=== PATIENT | male | born 1995 | race African-American/Black ===

== ENCOUNTER 2020-08-18 14:10 | Emergency (ER) | payer SELFPAY ==
[2020-08-18 14:44] VITALS: BP 155/109; PULSE 107; RESP 16; TEMP 36.6; O2SAT 97; BMI 30.8
--- NOTE | 2020-08-18 14:52 | XR_ITS ---
EXAMINATION: XR RIGHT ANKLE / FOOT CLINICAL INFORMATION: Fall. COMPARISON: None TECHNIQUE: AP, oblique and lateral views of the right ankle and AP and oblique views of the right foot. The lateral view includes the entire ankle and foot. FINDINGS: No acute fracture or dislocation. Ankle mortise is congruent. Talar dome intact. Joint spaces and articular surfaces are maintained. Diffuse soft tissue swelling about the ankle. No ankle joint effusion. XR/XR foot RT 2V IMPRESSION: No acute fracture or dislocation. Diffuse soft tissue swelling about the ankle.
--- NOTE | 2020-08-18 14:52 | XR_ITS ---
EXAMINATION: XR RIGHT ANKLE / FOOT CLINICAL INFORMATION: Fall. COMPARISON: None TECHNIQUE: AP, oblique and lateral views of the right ankle and AP and oblique views of the right foot. The lateral view includes the entire ankle and foot. FINDINGS: No acute fracture or dislocation. Ankle mortise is congruent. Talar dome intact. Joint spaces and articular surfaces are maintained. Diffuse soft tissue swelling about the ankle. No ankle joint effusion. XR/XR ankle RT min 3V IMPRESSION: No acute fracture or dislocation. Diffuse soft tissue swelling about the ankle.
--- NOTE | 2020-08-18 15:04 | ED_ITS ---
HPI - Extremity Injury (Lower) General Chief Complaint: Extremity Injury, Lower Stated Complaint: rt ankle pain Time Seen by Provider: 08/18/20 14:45 Source: patient Limitations: no limitations History of Present Illness HPI Narrative: A 24-year-old male with no significant past medical history presenting to the emergency department with right ankle pain. He states yesterday he was walking down steps and went to fall but caught himself. He did not hit his head or have LOC. No preceding symptoms. This morning he woke up at his friend's health and noticed increased swelling and pain to his ankle. He is able to ambulate with a limp. Unable to bear full weight. He other injuries. No paresthesias reported. Related Data Previous Rx's Medication Instructions Recorded hydrocortisone 1 appl TOPICAL BID PRN 7 Days #30 g 08/18/20 ibuprofen 600 mg PO Q6H PRN 7 Days #28 tab 08/18/20 Allergies Allergy/AdvReac Type Severity Reaction Status Date / Time cat dander [CATS] Allergy Intermediate WATERY EYES Unverified 05/03/20 16:29 pineapple [PINEAPPLE] Allergy Intermediate HIVES Unverified 05/03/20 16:29 Review of Systems Constitutional: Constitutional: Denies fever(s) Eyes: Eyes: Reports no additional eye complaints ENT: Reports system reviewed and no additional complaints, except as documented and Denies dizziness Cardiovascular: Cardiovascular: Denies chest pain, Denies syncope and Denies dyspnea Respiratory: Respiratory: Denies dyspnea Gastrointestinal: Gastrointestinal: Denies abdominal pain and Denies vomiting Musculoskeletal: Comments: right ankle pain and swelling Neurologic: Denies dizziness and Denies syncope Psychiatric: Psychiatric: Reports no additional psychiatric complaints Hematologic/Lymphatic: Hematologic/Lymphatic: Denies easy bleeding PMFSH Past Medical History Medical History Asthma Eczema Social History Social History Advance Directives: No Advance Directives Information Provided: No Physical Exam Vital Signs: Vital Signs: Last Vital Signs Temp 97.9 F 08/18/20 14:44 Pulse 107 H 08/18/20 14:44 Resp 16 08/18/20 14:44 BP 155/109 H 08/18/20 14:44 Pulse Ox 97 08/18/20 14:44 Body Mass Index 30.8 Const: Other: talking on cell phone, anxious Orientation/consciousness: patient oriented x3 HENMT: Head: Yes normocephalic and Yes atraumatic Eyes: Pupils: Equal, round and reactive pupils present EOM: EOMs intact bilaterally Neck: Neck: Yes full ROM, Yes trachea midline and Yes supple Chest: Chest palpation & inspection: normal inspection of the chest Resp: Effort & Inspection: normal respiratory effort and able to speak in complete sentences Cardio: Rate: tachycardic GI: Inspection: No distended and Yes obesity Back/Spine/Pelvis: Other: normal ROM Skin: Other: psoriatic rash noted to upper and lower extremities, unchanged per pt. Neuro: General: patient oriented x3 and no focal motor deficits Cranial nerves: Yes Equal, round and reactive pupils present Extrem: Other: RLE- + pedal pulse, full ROM of digits, limited ROM of ankle secondary to pain, able to flex/extend at the knee, no calf tenderness or swelling, diffuse swelling to ankle to bilateral malleoli, tenderness to palpation along swelling, some swelling extending into dorsal aspect of foot, compartments soft, neurovascularly intact Course Course Course Narrative: X-rays negative for fracture. Will give him an air splint and crutches. Discussed R.I.C.E. with him. We will give him Ortho follow-up should the swelling not improve. Upon discharge patient is asking me for something for his psoriatic rash. He does not have a PCP will give him hydrocortisone cream. Advised on how to use. MDM - Extremity Injury (Lower) MDM Narrative Medical decision making narrative: A 24-year-old male presenting to the emergency department after injuring his right ankle yesterday Vital significant for tachycardia most likely due to anxious state, nontoxic appearing, hemodynamically stable Will plan for a plain film to rule out underlying fracture given his soft tissue swelling. His pulses are intact, low concern for arterial injury. No evidence of compartment syndrome. No calf tenderness or swelling to suggest underlying DVT. Pain and swelling are secondary to trauma. No erythema or warmth to suggest septic joint, gout. Discharge Plan Discharge Clinical Impression: Ankle sprain, Psoriasis Patient Disposition: Home, Self-Care Instructions: Ankle Sprain (ED), R.I.C.E. Treatment (ED) Additional Instructions: You were seen in the emergency department for ankle pain and swelling. Your x- ray shows the swelling but does not show a fracture of your foot or ankle. However like please use the air splint when walking, crutches for non- weightbearing until your swelling resolves. Please elevate your leg and placed ice on your ankle to help with swelling. Please return to the emergency department if your symptoms worsen, increased pain, swelling, calf pain or swelling, weakness, numbness, tingling, or any other concerning symptoms. If your symptoms do not improve after a week you may also see orthopedic surgeon in the office- information provided. The Prescriptions: New ibuprofen 600 mg tablet 600 mg PO Q6H PRN (Reason: pain) 7 Days Qty: 28 RF: 0 hydrocortisone 2.5 % cream 1 appl topical BID PRN (Reason: rash) 7 Days Qty: 30 RF: 0 Referrals: Yuri Wagner MD [Physician] - 1 week (if your swelling does not improve ) Interventions: ED Discharge Assessment Last Done: 08/18/20 16:19 Discharge Date/Time: 08/18/20 16:19
[2020-08-18] MEDS: Ibuprofen 600 MG TABLET PO (15:09)
[2020-08-18] MEDS: Acetaminophen 325 MG TABLET 650 MG PO (15:09)
== END 2020-08-18 16:19 | disposition home or self-care (01) ==
PROVIDERS: Emergency Provider Emergency Medicine
DX: S93.401A Sprain of unspecified ligament of right ankle, initial encounter (principal); X50.1XXA Overexertion from prolonged static or awkward postures, initial encounter; L40.9 Psoriasis, unspecified; Y93.01 Activity, walking, marching and hiking; Y92.018 Other place in single-family (private) house as the place of occurrence of the external cause; Y99.9 Unspecified external cause status
CPT/HCPCS: 73610; 73620; 99283

== ENCOUNTER 2022-03-14 10:10 | Emergency (ER) | payer MEDICAID, SELFPAY ==
[2022-03-14 10:16] VITALS: BP 150/90; PULSE 60; RESP 18; TEMP 36.6; O2SAT 97; BMI 29.5
[2022-03-14 10:42] LABS: Appearance Urine CLOUDY; Color Urine YELLOW; Glucose Urine UA NEG (NEG); Leukocyte Esterase Urine 3+ (NEG); Nitrite Urine NEG (NEG); Specific Gravity - Urine 1.025 (1.005-1.025); UACC Culture Trigger YES; Urine Blood 1+ (NEG); Urine Ketones NEG (NEG); Urine Protein TRACE MG/DL (NEG-TRACE)
[2022-03-14 11:00] LABS: Bacteria Urine 1+ /LPF; Squamous Epithelial Cell Urine 1+ /LPF
--- NOTE | 2022-03-14 11:21 | ED_ITS ---
HPI - Male Genitourinary General Chief complaint: Urogenital-Male <HI Jo - Last Filed: 03/24/22 13:45> Stated complaint: UTI/possible STD <HI Jo - Last Filed: 03/24/22 13:45> Time Seen by Provider: 03/14/22 11:21 <HI Jo - Last Filed: 03/24/22 13:45> History of Present Illness HPI Narrative: Patient complains of burning with urination and a whitish discharge noticed 2 days ago, no fever no vomiting <HI Jo Last Filed: 03/24/22 13:45> Related Data Home medications: Previous Rx's Medication Instructions Recorded hydrocortisone 2.5 % topical cream 1 appl topical BID PRN rash 7 days 08/18/20 #30 grams ibuprofen 600 mg tablet 600 mg PO Q6H PRN pain 7 days #28 08/18/20 tabs doxycycline hyclate 100 mg tablet 100 mg PO BID 7 days #14 tabs 03/14/22 sulfamethoxazole 800 1 tab PO BID 5 days #10 tabs 03/14/22 mg-trimethoprim 160 mg tablet (Bactrim DS) <HI Jo Last Filed: 03/24/22 13:45> Allergies/Adverse reactions: Allergies Allergy/AdvReac Type Severity Reaction Status Date / Time cat dander [CATS] Allergy Intermediate WATERY EYES Unverified 05/03/20 16:29 pineapple [PINEAPPLE] Allergy Intermediate HIVES Unverified 05/03/20 16:29 <HI Jo Last Filed: 03/24/22 13:45> Review of Systems Review of Systems: Positive for burning with urination and whitish discharge for several days Negatives no fever no chills no headache no neck pain no chest pain no abdominal pain no lesions or sores on genitals no testicular swelling <HI Jo Last Filed: 03/24/22 13:45> Yes all other systems are reviewed and are negative <HI Jo - Last Filed: 03/24/22 13:45> PMFSH Past Medical History Source: nursing notes reviewed <HI Jo Last Filed: 03/24/22 13:45> Medical History: Medical History Asthma Eczema <HI Jo - Last Filed: 03/24/22 13:45> Social History Social History: Social History Advance Directives: No <HI Jo - Last Filed: 03/24/22 13:45> Physical Exam Vital Signs: Vital Signs: Last Vital Signs Temp 98 F 03/14/22 10:16 Pulse 60 03/14/22 10:16 Resp 18 03/14/22 10:16 BP 150/90 H 03/14/22 10:16 Pulse Ox 97 03/14/22 10:16 O2 Del Method 03/14/22 10:16 BMI result Body Mass Index 29.5 <HI oJ - Last Filed: 03/24/22 13:45> Vital Signs: Last Vital Signs Temp 98 F 03/14/22 10:16 Pulse 60 03/14/22 10:16 Resp 18 03/14/22 10:16 BP 150/90 H 03/14/22 10:16 Pulse Ox 97 03/14/22 10:16 O2 Del Method 03/14/22 10:16 BMI result Body Mass Index 29.5 <HI Burch - Last Filed: 03/16/22 12:03> General appearance no distress Head is normocephalic atraumatic Neck is supple Respiratory no distress Abdomen soft nontender Genital exam there is a scant watery whitish discharge, there are no lesions no ulcerations no herpetic lesions, no testicular swelling Extremities full range of motion x4 <HI Jo - Last Filed: 03/24/22 13:45> Course Course Course Narrative: Patient is treated with Rocephin and Zithromax says 1 time treatment and given a script for doxycycline as well to cover chlamydia He is advised to informal partners, refrain from sexual activity toe every once treated and follow with clinic <HI Jo - Last Filed: 03/24/22 13: 45> Reevaluation(s) Reevaluation #1: - patient was positive for gonorrhea chlamydia. 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 I explained to him that doxycycline is a 4 dollar prescription medication as [facility] pharmac[facility]. Although he did take the azithromycin 1000 mg and the Rocephin 500 mg while he was here in the ER. I explained to him the azithromycin was old treatment for gonorrhea therefore he may be okay although due to increased resistance they changed to doxycycline I explained to him that it would be better if he takes a doxycycline if not he would need to be retested. I also explained him that all his partner should be tested and treated. Form also faxed to stay for positive gonorrhea results. He understands agrees with this plan. <HI Burch - Last Filed: 03/16/22 12 :03> Time: 12:01 <HI Burch - Last Filed: 03/16/22 12:03> MDM - Male Genitourinary Lab Data Labs: Lab Results 03/14/22 03/14/22 Range/Units 10:26 10:33 Urine Color YELLOW Urine Appearance CLOUDY Urine pH 6.0 (5.0-8.0) Ur Specific [place] 1.025 (1.005-1.025) Urine Protein TRACE (NEG-TRACE) MG/DL Urine Glucose (UA) NEG (NEG) MG/DL Urine Ketones NEG (NEG) MG/DL Urine Blood 1+ H (NEG) Urine Nitrite NEG (NEG) Ur Leukocyte Esterase 3+ H (NEG) Urine RBC 1-4 (0) /HPF Urine WBC 76-150 H (0-4) /HPF Ur Squamous Epith Cells 1+ /LPF Urine Bacteria 1+ /LPF Chlam trachomat DNA PCR DETECTED A (Not Detect.) N.gonorrhoeae DNA (PCR) DETECTED A (Not Detect.) <HI Jo - Last Filed: 03/24/22 13:45> Lab Results 03/14/22 03/14/22 Range/Units 10:26 10:33 Urine Color YELLOW Urine Appearance CLOUDY Urine pH 6.0 (5.0-8.0) Ur Specific [place] 1.025 (1.005-1.025) Urine Protein TRACE (NEG-TRACE) MG/DL Urine Glucose (UA) NEG (NEG) MG/DL Urine Ketones NEG (NEG) MG/DL Urine Blood 1+ H (NEG) Urine Nitrite NEG (NEG) Ur Leukocyte Esterase 3+ H (NEG) Urine RBC 1-4 (0) /HPF Urine WBC 76-150 H (0-4) /HPF Ur Squamous Epith Cells 1+ /LPF Urine Bacteria 1+ /LPF Chlam trachomat DNA PCR DETECTED A (Not Detect.) N.gonorrhoeae DNA (PCR) DETECTED A (Not Detect.) <HI Burch Last Filed: 03/16/22 12:03> Discharge Plan Discharge Clinical Impression: Exposure to sexually transmitted disease (STD), Dysuria, Gonorrhea, Chlamydia <HI Jo Last Filed: 03/24/22 13:45> Patient Disposition: Home, Self-Care <HI Jo Last Filed: 03/24/22 13:45> Additional Instructions: We gave Rocephin and Zithromax for possible gonorrhea or chlamydia For possible chlamydia you still need to take doxycycline There is a small chance this is urinary tract infection, we will no for sure when the urine culture comes back, in the meantime I wrote a prescription for Bactrim for possible urinary tract infection [facility] for further evaluation including HIV testing <HI Jo Last Filed: 03/24/22 13:45> Prescriptions: New sulfamethoxazole-trimethoprim [Bactrim DS] 800-160 mg tablet 1 tab PO BID 5 Days Qty: 10 0RF doxycycline hyclate 100 mg tablet 100 mg PO BID 7 Days Qty: 14 0RF No Action ibuprofen 600 mg tablet 600 mg PO Q6H PRN (Reason: pain) 7 Days Qty: 28 0RF hydrocortisone 2.5 % cream 1 appl topical BID PRN (Reason: rash) 7 Days Qty: 30 0RF Rx Instructions: do not use on the face <HI Jo Last Filed: 03/24/22 13:45> Interventions: ED Discharge Assessment Last Done: 03/14/22 12:37 <HI Jo Last Filed: 03/24/22 13:45> Discharge Date/Time: 03/14/22 12:40 <HI Jo Last Filed: 03/24/22 13:45>
[2022-03-14] MEDS: Azithromycin 500 MG TABLET 1000 MG PO (12:08)
[2022-03-14] MEDS: cefTRIAXone sodium 500 MG, Lidocaine HCl 1 % MPF 1 ML IM (12:09)
[2022-03-14 13:57] LABS: CT PCR DETECTED (Not Detect.); NG PCR DETECTED (Not Detect.)
== END 2022-03-14 12:40 | disposition home or self-care (01) ==
PROVIDERS: Emergency Provider Student in an Organized Health Care Education/Training Program
DX: A54.9 Gonococcal infection, unspecified (principal); A56.8 Sexually transmitted chlamydial infection of other sites
CPT/HCPCS: 81001; 87086; 87491; 87591; 96372; 99282; 99284; J0696

== ENCOUNTER 2022-09-09 10:14 | Emergency (ER) | payer MEDICAID, SELFPAY ==
[2022-09-09 10:20] VITALS: BP 148/103; PULSE 103; RESP 18; TEMP 35.9; O2SAT 98; BMI 29.5
--- NOTE | 2022-09-09 10:35 | MHC.EDTECH ---
pt brought back to [facility] [place] @[id number]
--- NOTE | 2022-09-09 10:43 | ED.EAR ---
HPI - Ear Problem General Chief complaint: Ear Problems Stated complaint: Ear pain Time Seen by Provider: 09/09/22 10:35 Source: patient Mode of arrival: ambulatory Limitations: no limitations History of Present Illness MD Complaint: ear pain Location: bilateral Duration: constant Severity: moderate Relieving factors: nothing Exacerbating factors: nothing Discharge from ear: no Treatment prior to arrival: none Related Data Previous Rx's Medication Instructions Recorded hydrocortisone 2.5 % topical cream 1 appl topical BID PRN rash 7 days 08/18/20 #30 grams ibuprofen 600 mg tablet 600 mg PO Q6H PRN pain 7 days #28 08/18/20 tabs doxycycline hyclate 100 mg tablet 100 mg PO BID 7 days #14 tabs 03/14/22 sulfamethoxazole 800 1 tab PO BID 5 days #10 tabs 03/14/22 mg-trimethoprim 160 mg tablet (Bactrim DS) amoxicillin 875 mg-potassium 1 tab PO BID 10 days #20 tabs 09/09/22 clavulanate 125 mg tablet Allergies Allergy/AdvReac Type Severity Reaction Status Date / Time cat dander [CATS] Allergy Intermediate WATERY EYES Verified 09/09/22 10:21 pineapple [PINEAPPLE] Allergy Intermediate HIVES Verified 09/09/22 10:21 Review of Systems Review of Systems: Constitutional : No Weight loss, No Fever, No Chills, No Night Sweats, No Fatigue, No Malaise ENT/Mouth : No Hearing loss, + Ear Pain, No Nasal Congestion, No Sinus Pain, No Hoarseness, No sore throat, No Rhinorrhea, No Swallowing Difficulty Eyes: No Eye Pain, No Swelling, No Redness, No Foreign Body, No Discharge, No Vision Changes Cardiovascular : No Chest Pain, No SOB, No Dyspnea on Exertion, No Orthopnea, No Edema, No Palpitations Respiratory : No Cough, No Sputum, No Wheezing, No Smoke Exposure, No Dyspnea Gastrointestinal : No Nausea, No Vomiting, No Diarrhea, No Constipation, No abdominal Pain, No Hematochezia, No Melena Genitourinary : no irregular bleeding, No Dysuria, No Urinary Frequency, No Hematuria, No Urinary Incontinence, No Urgency, No Flank Pain, No Urinary Flow Changes, No Hesitancy Musculoskeletal : No joint pain, No Myalgias, No Joint Swelling Skin : No Skin Lesions, No rash Neuro : No Weakness, No Numbness, No Paresthesias, No Loss of Consciousness, No Dizziness, No Headache Psych : No Anxiety/Panic, No Depression, No SI/HI/AH/VH, No Social Issues, Heme/Lymph: No Bruising, No Bleeding,No Lymphadenopathy Endocrine : No Polyuria, No Polydipsia, No Temperature Intolerance Yes all other systems are reviewed and are negative [facility] Past Medical History Attestation statement: The following information was validated with the patient. Source: old records reviewed and nursing notes reviewed Medical History Asthma Eczema Social History Social History Advance Directives: No Advance Directives Information Provided: No Physical Exam Vital Signs: Vital Signs: Last Vital Signs Temp 96.6 F L 09/09/22 10:20 Pulse 103 H 09/09/22 10:20 Resp 18 09/09/22 10:20 BP 148/103 H 09/09/22 10:20 Pulse Ox 98 09/09/22 10:20 O2 Del Method 09/09/22 10:20 BMI result Body Mass Index 29.5 Vital signs reviewed. Blood pressure 148/103. Pulse 103. Respiration normal. Oxygen normal. Temperature normal. Appearance: Alert. Oriented X3. No acute distress. Head: Normal external exam. Normocephalic. Atraumatic. Eyes: PERRLA. EOMI. Conjunctiva and sclera normal. Eyelids normal. ENT: EAC normal. Bilateral tympanic membranes erythematous/ bulging with loss of normal landmarks and decreased light reflex consistent with otitis media. Tympanic membranes are intact not perforated. Pharynx normal. Uvula midline. Moist mucous membranes. No lesions/ulcerations or masses noted on the tongue. Normal voice. No trismus noted. No drooling noted. No muffled voice noted. Neck: Normal inspection. Neck supple. FROM. No adenopathy. Thyroid Normal. No meningeal signs. CVS: Normal heart rate and rhythm. Heart sound normal. Pulses normal throughout. No murmurs/rales/gallops. Respiratory: No respiratory distress. Painless inspiration. Breath sounds normal. No wheezes/rales/rhonchi noted. Chest nontender. No accessory muscle usage noted or decreased air movement noted. Abdomen: Soft and nontender. Back: Full range of motion noted. Nontender. Skin: Skin warm and dry. Normal skin color. Normal skin turgor. No rashes/lesions/lacerations noted. Extremities: Extremities exhibit normal range of motion and nontender. Neuro: Oriented X 3. No motor deficit. No sensory deficit. Reflexes normal. Normal steady gait. No focal neuro deficits noted. CN's II-XII intact bilaterally? Vascular: + radial pulses. Normal cap refill. No cyanosis noted to upper extremity nails Course Course Course Narrative: Denies Trauma; FB; FCS; Tinnitus; Trismus; Rash; H/A; Runny Nose; Dysphagia; Swelling; Bleeding; Cough; Focal Weakness, Numbness; Vertigo OM: TMs erythematous bilaterally with loss of landmarks consistent with acute OM. TM intact, no perforation noted. Minimal wax in canal. Canal is non-erythematous without exudate. No pinna, mastoid or tragus tenderness. I considered mastoiditis, epidural abscess, malig OE, TMJ, meningitis, and other infxs but the hx, exam& data did not support the diagnoses. The pt/family was advised that some diseases present atypically & the pt was given explicit DC instructions The pt/family was advised that some dzs present atypically & the pt was given explicit DC instructions. The nonuse of antibiotics was discussed. Discussed importance of close follow up and explicit return precautions advised. Patient demonstrates good understanding and agrees with plan. Discharge Plan Discharge Clinical Impression: Otitis media Patient Disposition: Home, Self-Care Instructions: Ear Infection (ED) Additional Instructions: I gave you a few numbers below for primary care provider if you Want to establish one. Prescriptions: New amoxicillin-pot clavulanate 875-125 mg tablet 1 tab PO BID 10 Days Qty: 20 0RF No Action ibuprofen 600 mg tablet 600 mg PO Q6H PRN (Reason: pain) 7 Days Qty: 28 0RF hydrocortisone 2.5 % cream 1 appl topical BID PRN (Reason: rash) 7 Days Qty: 30 0RF Rx Instructions: do not use on the face sulfamethoxazole-trimethoprim [Bactrim DS] 800-160 mg tablet 1 tab PO BID 5 Days Qty: 10 0RF doxycycline hyclate 100 mg tablet 100 mg PO BID 7 Days Qty: 14 0RF Referrals: [facility] [Provider Group] [facility] [Provider Group] [facility] [place] [facility] [Provider Group] [facility] [place] [facility]Provider Group] [facility] [place] [facility] [Provider Group]
== END 2022-09-09 10:54 | disposition home or self-care (01) ==
PROVIDERS: Emergency Provider Emergency Medicine
DX: H66.93 Otitis media, unspecified, bilateral (principal); H92.03 Otalgia, bilateral
CPT/HCPCS: 99283

== ENCOUNTER 2024-10-28 16:13 | Emergency (ER) | payer MEDICAID, SELFPAY ==
--- NOTE | 2024-10-28 16:32 | ED.GENADULT ---
HPI - General Adult General Chief complaint: Urogenital-Male Stated complaint: talbot when urinating Time Seen by Provider: 10/28/24 21:14 Source: patient Mode of arrival: ambulatory Limitations: no limitations History of Present Illness ED Provider: HPI narrative: Patient is a day had history of glucagon infection in the past comes here at he had unprotected sex and now noticed yellowish discharge serology showed patient is positive for GC and chlamydia Related Data Previous Rx's ?Medication ?Instructions ?Recorded hydrocortisone 2.5 % topical cream 1 appl topical BID PRN rash 7 days 08/18/20 #30 grams ibuprofen 600 mg tablet 600 mg PO Q6H PRN pain 7 days #28 08/18/20 tabs doxycycline hyclate 100 mg tablet 100 mg PO BID 7 days #14 tabs 03/14/22 sulfamethoxazole 800 1 tab PO BID 5 days #10 tabs 03/14/22 mg-trimethoprim 160 mg tablet (Bactrim DS) amoxicillin 875 mg-potassium 1 tab PO BID 10 days #20 tabs 09/09/22 clavulanate 125 mg tablet doxycycline hyclate 100 mg tablet 100 mg PO BID #14 tabs 10/28/24 Allergies Allergy/AdvReac Type Severity Reaction Status Date / Time cat dander [CATS] Allergy Intermediate WATERY EYES Verified 10/28/24 16:37 pineapple [PINEAPPLE] Allergy Intermediate HIVES Verified 10/28/24 16:37 Review of Systems Review of Systems: Yes all other systems are reviewed and are negative PMFSH Past Medical History Medical History Eczema Asthma Social History Social History Alcohol intake: current Alcohol intake frequency: a few times a week Advance Directives: No Advance Directives Information Provided: No Do you have a plan to hurt others: No Plan Physical Exam ED Vital Signs: Vital Signs - 24 hr 10/28/24 16:34 Temperature 97.9 F Pulse Rate 86 Respiratory Rate 18 Blood Pressure 151/123 H Pulse Oximetry 100 Oxygen Delivery Method Room Air BMI result Body Mass Index 37.2 Appearance: Alert. Oriented X3. No acute distress. Eyes: PERRLA, No Nystagmus ENT: Pharynx normal. Oral Mucosa moist Neck: Normal inspection. Neck supple. CVS: Normal heart rate and rhythm. Pulses normal. Respiratory: No respiratory distress. Equal air entry bilateral, no wheezing/rales/rhonchi Abdomen: Soft and nontender. Bowel sounds are present, no mass palpable, no CVA tenderness Skin: Skin warm and dry. Normal skin color. Normal skin turgor. Extremities: No lower extremity edema. No calf tenderness : Purulent penile discharge Neuro: Oriented X 3. No motor deficit. Course Course Course Narrative: This is a rapid medical exam performed by Miguelito Kramer NP: Additional HPI, ROS, PE not included below will be deferred to primary provider. Patient is a 28-year-old male presenting to the ED with complaint of dysuria x 4 days, after unprotected intercourse with a male. Past two days has woken with yellow penile discharge. Denies fevers, nausea, vomiting. Reports history of chlamydia in the past. Plan: UA, CT NG, RPR Reevaluation(s) Reevaluation #1: 14:40 10/31/24 RPR positive. Called patient to discuss results, no answer, left voicemail for patient to call the ED as soon as possible. Medications Administered Discontinued Medications Generic Name Dose Route Start Last Admin Trade Name Freq PRN Reason Stop Dose Admin Ceftriaxone Sodium 500 mg/ 0 mg 10/28/24 21:21 10/28/24 21:29 Lidocaine HCl 1 ml IM 10/28/24 21:22 500 kit ONCE ONE Administration Doxycycline Monohydrate 100 mg 10/28/24 21:21 10/28/24 21:30 Doxycycline Monohydrate 100 Mg Capsule PO 10/28/24 21:22 100 mg ONCE ONE Administration Medical Decision Making Lab Data [facility] Lab Attestation statement: I reviewed the patient's lab results. Labs: Lab Results 10/28/24 Range/Units 16:44 Urine Color Yellow Urine Appearance Clear Urine pH 5.5 (5.0-9.0) Ur Specific Edwards 1.020 (1.005-1.025) Urine Protein Negative (Neg-Trace) mg/dL Urine Glucose (UA) Negative (Negative) mg/dL Urine Ketones Trace (Negative) mg/dL Urine Blood Negative (Negative) Urine Nitrite Negative (Negative) Ur Leukocyte Esterase Small (1+) H (Negative) Urine RBC 0-2 (0-2) /HPF Urine WBC 21-50 H (0-5) /HPF Ur Squamous Epith Cells 0-2 (0-2) /HPF Urine Bacteria None Seen (None Seen) Hyaline Casts 0-2 (0-2) /LPF T.pallidum Ab (EIA) Reactive A (Nonreactive) Chlam trachomat DNA PCR DETECTED A (Not Detect.) N.gonorrhoeae DNA (PCR) DETECTED A (Not Detect.) Discharge Plan Discharge Clinical Impression: Exposure to sexually transmitted disease (STD), Urethritis Patient Disposition: Home, Self-Care Instructions: Chlamydia (ED), Sexually Transmitted Diseases (ED), Safe Sex Practices (ED), Gonorrhea (ED) Additional Instructions: Take antibiotic as prescribed Use safe sex practices Follow with PCP if any concerns Prescriptions: New doxycycline hyclate 100 mg tablet 100 mg PO BID Qty: 14 0RF No Action ibuprofen 600 mg tablet 600 mg PO Q6H PRN (Reason: pain) 7 Days Qty: 28 0RF hydrocortisone 2.5 % cream 1 appl topical BID PRN (Reason: rash) 7 Days Qty: 30 0RF Rx Instructions: do not use on the face sulfamethoxazole-trimethoprim [Bactrim DS] 800-160 mg tablet 1 tab PO BID 5 Days Qty: 10 0RF doxycycline hyclate 100 mg tablet 100 mg PO BID 7 Days Qty: 14 0RF amoxicillin-pot clavulanate 875-125 mg tablet 1 tab PO BID 10 Days Qty: 20 0RF Interventions: ED Discharge Assessment Last Done: 10/28/24 22:19 Discharge Date/Time: 10/28/24 22:19 Print Language: Burmese
[2024-10-28 16:34] VITALS: BP 151/123; PULSE 86; RESP 18; TEMP 36.6; O2SAT 100; BMI 37.2
[2024-10-28 17:03] LABS: Appearance Urine Clear; Color Urine Yellow; Glucose Urine UA Negative (Negative); Leukocyte Esterase Urine Small (1+) (Negative); Nitrite Urine Negative (Negative); PH 5.5 (5.0-9.0); UMIC TRIGGER UACC YES; Urine Blood Negative (Negative); Urine Ketones Trace mg/dL (Negative); Urine Protein Negative (Neg-Trace)
[2024-10-28 17:05] LABS: Bacteria Urine None Seen (None Seen); Hyaline Casts Urine 0-2 /LPF (0-2); RBC Urine 0-2 /HPF (0-2); Squamous Epithelial Cell Urine 0-2 /HPF (0-2); UACC Culture Trigger YES; WBC Urine 21-50 /HPF (0-5)
[2024-10-28 18:48] LABS: CT PCR DETECTED (Not Detect.); NG PCR DETECTED (Not Detect.)
[2024-10-28] MEDS: cefTRIAXone sodium 500 MG, Lidocaine HCl 1 % MPF 1 ML IM (21:29)
[2024-10-28] MEDS: Doxycycline Monohydrate 100 MG CAPSULE PO (21:30)
[2024-10-28 22:19] VITALS: BP 151/123; PULSE 86; RESP 18; TEMP 36.6; O2SAT 100
[2024-10-29 04:03] LABS: Syphilis Screen Reactive (Nonreactive)
[2024-11-04 13:06] LABS: RPR Quantitative Reactive 1:16 (Nonreactive); T.Pallidum Particle Agg Test Reactive (Nonreactive)
== END 2024-10-28 22:19 | disposition home or self-care (01) ==
PROVIDERS: Registered Nurse Emergency; Emergency Provider Internal Medicine
DX: R30.0 Dysuria (principal); N34.2 Other urethritis; R36.9 Urethral discharge, unspecified; Z79.899 Other long term (current) drug therapy; Z20.2 Contact with and (suspected) exposure to infections with a predominantly sexual mode of transmission
CPT/HCPCS: 36415; 81001; 81003; 86592; 86780; 87086; 87491; 87591; 96372; 99282; 99284; J0696; J2003

== ENCOUNTER 2024-11-03 10:36 | Emergency (ER) | payer MEDICAID, SELFPAY ==
[2024-11-03 10:53] VITALS: BP 144/112; PULSE 93; RESP 16; TEMP 36.8; O2SAT 99; BMI 35.5
--- NOTE | 2024-11-03 10:58 | ED.MALEGU ---
HPI - Male Genitourinary General Chief complaint: Urogenital-Male Stated complaint: was called for std Time Seen by Provider: 11/03/24 10:58 Source: patient, RN notes reviewed and old records reviewed Mode of arrival: ambulatory History of Present Illness ED Provider: Martha Jalloh PA-C HPI Narrative: 28-year-old male with past medical history of asthma, STI, presenting to ED for syphilis treatment. Patient was seen and treated in our ED on 10/28 s/p unprotected intercourse, had STI at that time, tested positive for gonorrhea, chlamydia, and syphilis. Was appropriately treated for gonorrhea and chlamydia however not for syphilis. Denies any new symptoms at present. Denies rash, ulcers, abdominal pain, dysuria /hematuria, flank pain. Related Data Previous Rx's ?Medication ?Instructions ?Recorded hydrocortisone 2.5 % topical cream 1 appl topical BID PRN rash 7 days 08/18/20 #30 grams ibuprofen 600 mg tablet 600 mg PO Q6H PRN pain 7 days #28 08/18/20 tabs doxycycline hyclate 100 mg tablet 100 mg PO BID 7 days #14 tabs 03/14/22 sulfamethoxazole 800 1 tab PO BID 5 days #10 tabs 03/14/22 mg-trimethoprim 160 mg tablet (Bactrim DS) amoxicillin 875 mg-potassium 1 tab PO BID 10 days #20 tabs 09/09/22 clavulanate 125 mg tablet doxycycline hyclate 100 mg tablet 100 mg PO BID #14 tabs 10/28/24 Allergies Allergy/AdvReac Type Severity Reaction Status Date / Time cat dander [CATS] Allergy Intermediate WATERY EYES Verified 11/03/24 10:54 pineapple [PINEAPPLE] Allergy Intermediate HIVES Verified 11/03/24 10:54 Review of Systems Review of Systems: Yes all other systems are reviewed and are negative Constitutional: Constitutional: Reports as per [facility] Past Medical History Attestation statement: The following information was validated with the patient. Source: old records reviewed Medical History Eczema Asthma Social History Social History Alcohol intake: current Alcohol intake frequency: a few times a week Advance Directives: No Advance Directives Information Provided: Yes Physical Exam Vital Signs: Vital Signs: Last Vital Signs Temp 98.3 F 11/03/24 10:53 Pulse 93 11/03/24 10:53 Resp 16 11/03/24 10:53 BP 144/112 H 11/03/24 10:53 Pulse Ox 99 11/03/24 10:53 O2 Del Method Room Air 11/03/24 10:53 BMI result Body Mass Index 35.5 Const: General: cooperative, healthy appearing and no acute distress Orientation/consciousness: patient oriented x3 Limitations: no limitations HEENT: Head: Yes normal to inspection and Yes atraumatic Ears: hearing grossly normal bilaterally General nose exam: Normal external nose present Face and sinus: Yes normal facial exam Eyes: General: appearance normal, both eyes and all related structures EOM: EOMs intact bilaterally Neck: Neck: Yes normal visual inspection and Yes no meningeal signs Resp: Effort & Inspection: normal respiratory effort and no respiratory distress Cardio: Rate: regular rate Skin: Rashes: no rashes Wounds: no wounds Neuro: General: patient oriented x3, tone normal and no meningeal signs Cranial nerves: Yes CN's II-XII intact bilaterally Gait exam (Neuro): Normal gait present Extrem: General: Yes normal to inspection Medical Decision Making Medical Decision Making MDM Narrative: 28-year-old male with past medical history of asthma, STI, presenting to ED for syphilis treatment. Patient was seen and treated in our ED on 10/28 s/p unprotected intercourse, had STI at that time, tested positive for gonorrhea, chlamydia, and syphilis. Was appropriately treated for gonorrhea and chlamydia however not for syphilis. On exam hypertensive (appears chronic, denies history of HTN. Not currently on medication), nontoxic appearing, concern for syphilis. No signs of neuro syphilis at this time. Plan: Penicillin G, infectious disease follow-up , PCP follow-up to address blood pressure Please refer to course for remaining clinical decision making, interpretation of labs/imaging results, and discussions with consultants and/or family members. Results discussed with patient including worrisome signs and symptoms and strict return precautions, and when to return to the emergency department. They verbalized understanding and feel safe for discharge at this time. Differential Diagnosis Differential Diagnoses: The differential diagnosis associated with the presentation includes As above Lab Data [facility] Lab Attestation statement: I reviewed the patient's lab results. External Record Review External record reviewed: Inpatient record, Office record, Outpatient record, Prior outpatient labs, Prior outpatient radiology, Primary care record and Outside ED record Tests considered The following testing was considered but not selected: As above Prescription Management I considered prescription management with: Antibiotic Chronic Conditions Patient?s care impacted by: Other Social Determinants Patient?s care significantly limited by Social Determinants of Health including: Other Social Determinant of Health Discharge Plan Discharge Clinical Impression: Syphilis, HTN (hypertension) Patient Disposition: Home, Self-Care Instructions: Syphilis (ED) Additional Instructions: you tested positive for syphilis. Confirmatory testing is still pending You need to have close follow-up with Infectious Disease, call to make an appointment You were treated appropriately. Continue other prescribed medications as well until completion Refrain from any sexual contact until you follow-up with infectious disease Follow-up with [facility] for further STI testing including HIV testing. YOUR BLOOD PRESSURE IS VERY ELEVATED. THIS APPEARS CHRONIC. YOU NEED TO HAVE FOLLOW UP WITH YOUR PRIMARY CARE DOCTOR TO HAVE THIS ADDRESSED Prescriptions: No Action ibuprofen 600 mg tablet 600 mg PO Q6H PRN (Reason: pain) 7 Days Qty: 28 0RF hydrocortisone 2.5 % cream 1 appl topical BID PRN (Reason: rash) 7 Days Qty: 30 0RF Rx Instructions: do not use on the face sulfamethoxazole-trimethoprim [Bactrim DS] 800-160 mg tablet 1 tab PO BID 5 Days Qty: 10 0RF doxycycline hyclate 100 mg tablet 100 mg PO BID 7 Days Qty: 14 0RF amoxicillin-pot clavulanate 875-125 mg tablet 1 tab PO BID 10 Days Qty: 20 0RF doxycycline hyclate 100 mg tablet 100 mg PO BID Qty: 14 0RF Ref[place]: [facility] [place] [facility] [place] [Provider Group] [facility] [place] [facility] [Provider Group] Monika Ulloa MD [Physician] - 5 days Print Language: Italian
[2024-11-03 11:27] VITALS: BP 151/105; PULSE 78; RESP 16; O2SAT 100
[2024-11-03 11:28] VITALS: BP 151/105
[2024-11-03] MEDS: Penicillin G Benzathine 2,400,000 UNIT/4 ML SYRINGE 2400000 UNIT IM (11:36)
[2024-11-03 11:42] VITALS: BP 151/105; PULSE 78; RESP 16; TEMP 36.8; O2SAT 100
== END 2024-11-03 11:44 | disposition home or self-care (01) ==
PROVIDERS: Emergency Provider Emergency Medicine
DX: A53.9 Syphilis, unspecified (principal); I10 Essential (primary) hypertension; J45.909 Unspecified asthma, uncomplicated; Z79.899 Other long term (current) drug therapy
CPT/HCPCS: 96372; 99283; 99284; J0561